=== PATIENT | male | born 1980 | race Caucasian/White ===

== ENCOUNTER 2016-09-20 01:03 | Emergency (ER) | payer MEDICAID ==
[2016-09-20] MEDS ORDERED: CEPHALEXIN 250 MG CAPSULE PO STA (01:42)
[2016-09-20] MEDS ORDERED: HYDROcod/ACET 5/325 Prepack 6 PO STA (01:42)
[2016-09-20] MEDS ORDERED: HYDROcod/ACET 5/325 Prepack 6 PO ONE (01:47)
[2016-09-20] MEDS ORDERED: CEPHALEXIN 250 MG CAPSULE PO ONE (01:47)
== END 2016-09-20 01:53 | disposition home or self-care (01) ==
DX: K08.89 Other specified disorders of teeth and supporting structures (principal)
CPT/HCPCS: 99283; A9270

== ENCOUNTER 2018-03-28 13:44 | Outpatient (CLI) | payer MEDICAID, OTHER | END 2018-03-28 13:45 | disposition critical access hospital (66) | LOC: EMS 13:44 | PROVIDERS: ATTEND Surgery | DX: R07.9 Chest pain, unspecified (principal); M25.561 Pain in right knee; V49.40XA Driver injured in collision with unspecified motor vehicles in traffic accident, initial encounter; Y92.413 State road as the place of occurrence of the external cause | CPT/HCPCS: A0425; A0429 ==

== ENCOUNTER 2018-03-28 13:52 | Emergency (ER) | payer MEDICAID, OTHER ==
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
[2018-03-28] MEDS ORDERED: HYDROcod/ACETAM 5/325 MG TABLET PO STA (14:32)
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
[2018-03-28 15:51] VITALS: BP 139/90
== END 2018-03-28 15:56 | disposition home or self-care (01) ==
LOC: EDUNIT# → ED 13:52
DX: S60.511A Abrasion of right hand, initial encounter (principal); S20.219A Contusion of unspecified front wall of thorax, initial encounter; S80.01XA Contusion of right knee, initial encounter; V89.2XXA Person injured in unspecified motor-vehicle accident, traffic, initial encounter; Y92.410 Unspecified street and highway as the place of occurrence of the external cause; F17.200 Nicotine dependence, unspecified, uncomplicated
CPT/HCPCS: 36415; 71046; 73564; 99283; A9270

== ENCOUNTER 2018-05-30 06:28 | Outpatient (CLI) | payer SELFPAY | END 2018-05-30 06:29 | disposition home or self-care (01) | LOC: EMS 06:28 | PROVIDERS: ATTEND Surgery | DX: I46.9 Cardiac arrest, cause unspecified (principal) | CPT/HCPCS: A0425; A0433 ==